=== PATIENT | male | born 1950 | race Caucasian/White ===

== ENCOUNTER → 2019-06-19 | Outpatient (CLI) | payer OTHER ==
[~2019-06-19] MED LIST: GADOBENATE DIMEGLUMINE 1 ML IV ONE
[2019-06-19 12:34] LABS: BLOOD UREA NITROGEN 14 mg/dL (7-26); BUN/CREATININE RATIO 18 (6-25); CREATININE, SERUM 0.79 mg/dL (0.72-1.25); EST GLOMERULAR FILTRATION RATE > 60 ML/MIN (60-)
--- NOTE | 2019-06-19 14:53 | Diagnostic Imaging Report ---
Examination: MRI BRAIN WOW CONTRAST History: Dizziness. Comparison studies: None Technique: Pre-contrast: Sagittal T2; axial T1, GRE or SWI, DWI, T2 FLAIR Post-contrast: axial, sagittal and coronal T1. Intravenous contrast: 20 mL MultiHance Findings: Scalp: No abnormal signal. No masses. Bone marrow: Normal in signal intensity. Brain volume: Mild generalized volume loss. Ventricles: No hydrocephalus. Parenchyma: There are patchy and punctate areas of T2/FLAIR hyperintensity in the periventricular and subcortical white matter, nonspecific. No masses, hemorrhage, or acute vascular insults. Extra-axial spaces: No lesion, fluid collection or hematoma. Enhancement: No abnormal enhancement. Suprasellar and sellar region: No abnormalities. Craniocervical junction: No abnormalities. The foramen magnum is patent. No Chiari malformations. Vessels: Normal flow-voids in the arteries and sinuses. Additional findings:None. IMPRESSION: No acute intracranial abnormalities. Mild chronic microvascular ischemic change and volume loss. Signed by: Dr. Paula Haynes M.D. on 06/19/2019 2:49 PM
== END ==
LOC: MRI 11:24
PROVIDERS: ATTEND General Practice
DX: S00.83XA Contusion of other part of head, initial encounter (principal); R55 Syncope and collapse; R42 Dizziness and giddiness; W18.30XA Fall on same level, unspecified, initial encounter
CPT/HCPCS: 36415; 70553; 82565; 84520; A9577